=== PATIENT | male | born 1945 | race Caucasian/White ===

== ENCOUNTER 2017-06-21 13:50 | Inpatient (IN) | payer MEDICARE, BC ==
[~2017-06-21] VITALS: Ht 185.4 cm; Wt 101.8 kg
[~2017-06-21 13:50] MED LIST: AMLODIPINE5 MG PO; FLEXERIL10 MG PO; FLUZONE SPLT1 M1 IM; HYDROCHLORO25 MG/TAB PO; LORTAB5 PO; METOPROL TAR25 MG PO; NAPROXEN500 MG PO; SIMVASTATIN40 MG PO
[2017-06-21 14:39] LABS: HEMOGLOBIN 14.8 g/dl (14.0-18.0); IMMATURE GRANULOCYTES 0.5 % (0.0-1.0); MEAN CELL VOLUME 96.3 fL CALC (80.0-100.0); MEAN CORPUSCULAR HGB 32.4 pG CALC (26.0-32.0); MEAN CORPUSCULAR HGB CONC 33.6 g/L CALC (32.0-36.0); NEUT# 9.62 thou/uL (1.82-7.42); RED BLOOD COUNT 4.57 mill/uL (4.70-6.10)
[2017-06-21 15:54] LABS: ANION GAP 16 (6-22 (CALC)); BUN 14 mg/dL (8-23); BUN/CREATININE RATIO 17 (12-20 (CALC)); CARBON DIOXIDE 24 mmol/l (22-30); CHLORIDE 106 mmol/l (95-108); CREATININE 0.8 mg/dL (0.7-1.3); GFR > 60 ML/MIN (>=60 (CALC)); GFR FOR AFR.AMER. > 60 ML/MIN (>=60 (CALC)); POTASSIUM 3.7 mmol/l (3.5-5.1); SODIUM 143 mmol/l (137-146)
[2017-06-21] MEDS ORDERED: VITAMIN D32000 UNIT PO (17:45)
[2017-06-21] MEDS ORDERED: ASPIRIN 81 LOW81 MG PO (17:45)
[2017-06-21 19:15] VITALS: BP 142/77
[2017-06-21 22:16] LABS: URINE BILIRUBIN - DIPSTICK NEGATIVE (NEGATIVE); URINE BLOOD DIPSTICK TRACE-INTACT (NEGATIVE); URINE COLOR YELLOW; URINE GLUCOSE - DIPSTICK NEGATIVE (NEGATIVE); URINE KETONE NEGATIVE (NEGATIVE); URINE LEUK ESTERASE NEGATIVE (Negative); URINE NITRITE - DIPSTICK NEGATIVE (Negative); URINE PROTEIN - DIPSTICK NEGATIVE (NEG-TRACE); URINE SPECIFIC GRAVITY 1.015; URINE UROBILINOGEN - DIPSTICK 0.2 E.U./dL (0.2)
[2017-06-21 22:18] LABS: URINE CLARITY CLEAR
[2017-06-21 23:10] VITALS: BP 115/70
[2017-06-22] VITALS (7 sets, daily range): BP systolic 104–134; BP diastolic 66–90
== END 2017-06-22 03:25 | disposition short-term general hospital (02) | DRG 313 ==
LOC: ED 13:50 → ED-I 16:48 → ED 17:30 → MS2 17:31 → ICU 17:31 → MS2 19:27 → ICU 06-22 00:36
PROVIDERS: Family Medicine; ADMIT Internal Medicine; ATTEND Internal Medicine
DX: R07.9 Chest pain, unspecified (principal); I48.91 Unspecified atrial fibrillation; R94.31 Abnormal electrocardiogram [ECG] [EKG]; Z85.118 Personal history of other malignant neoplasm of bronchus and lung
CPT/HCPCS: G0378; J1650